=== PATIENT | male | born 1950 | race African-American/Black ===

== ENCOUNTER 2020-10-21 14:11 | Emergency (ER) | payer MEDICARE, MEDICAID ==
[2020-10-21] MEDS ORDERED: Thiamine HCl 200 MG/2 ML VIAL ONE (15:07)
[2020-10-21 15:18] LABS: Acetaminophen Less than 6.0 mcg/mL (10.0-30.0); Alcohol Less than 10 mg/dL (Less than 10); Salicylate Less than 8.0 mg/dL (15.0-30.0)
[2020-10-21 15:19] LABS: #Eosinphils 0.1 10x3/uL (0.0-0.5); #Monocytes 1.1 10x3/uL (0.0-1.1); #Neutrophils 10.6 10x3/uL (1.5-8.4); %Basophils 0.3 % (0.0-2.0); %Eosinophils 0.6 % (0.0-6.0); %Lymphocytes 11.5 % (18.0-47.0); %Monocytes 8.4 % (0.0-10.0); %Neutrophils 78.7 % (40.0-75.0); ALT (SGPT) 12 U/L (8-55); AST (SGOT) 13 U/L (5-34); Alkaline Phosphatase 116 U/L (40-110); BUN (Urea Nitrogen) 103 mg/dL (8.4-25.7); Bilirubin, Total 0.4 mg/dL (0.2-1.2); Calc. Creatinine Clearance 0 mL/min (70-130); Calcium 9.1 mg/dL (7.8-10.44); Chloride 115 mmol/L (98-107); Globulin 3.6 g/dL (2.4-3.5); Glucose 102 mg/dL (83-110); Hemoglobin 12.4 g/dL (13.5-17.5); Lipase 110 U/L (8-78); Mean Corpuscular HGB CONC 30.5 g/dL (32.0-36.0); Mean Corpuscular Hemoglobin 28.4 pg (27.0-33.0); Mean Corpuscular Volume 93.1 fl (81.2-95.1); Mean Platelet Volume 9.5 fl (7.4-10.4); Platelet Count 392 10x3/uL (150-450); Protein, Total 7.6 g/dL (5.8-8.1); RBC Distribution Width 17.3 % (11.5-14.5); Red Blood Cell (RBC) Count 4.36 10x6/uL (4.32-5.72); Sodium 136 mmol/L (136-145); White Blood Cell (WBC) Count 13.5 10x3/uL (3.5-10.5)
[2020-10-21] MEDS ORDERED: Cefepime 2 GM VIAL ONE (15:52)
[2020-10-21 17:11] LABS: Potassium 7.9 mmol/L (3.5-5.1)
[2020-10-21 17:12] LABS: Carbon Dioxide Less than 8 mmol/L (23-31)
[2020-10-21] MEDS ORDERED: Albuterol Sulfate 2.5 mg/3 ml Neb ONE (17:28)
[2020-10-21] MEDS ORDERED: Sodium Bicarb 50 MEQ/50 ML Abboject 8.4% SYRINGE ONE (17:29)
[2020-10-21] MEDS ORDERED: Calcium Chloride 1 GM/10 ML Abboject SYRINGE ONE (17:29)
[2020-10-21] MEDS ORDERED: Dextrose 50% Abboject 50 ML SYRINGE ONE (17:30)
[2020-10-21] MEDS ORDERED: Calcium Gluc 4.6 MEQ/10 ML (100 MG/ML) IV SCH (17:45)
[2020-10-21] MEDS ORDERED: Insulin Regular 300 UNITS/3 ML VIAL ONE (17:58)
[2020-10-21 18:12] LABS: PTT 23.9 sec (22.0-33.0); Prothrombin Time 10.9 sec (9.5-12.1)
[2020-10-21] MEDS ORDERED: Bisacodyl 5 MG TAB PO PRN (18:19)
[2020-10-21] MEDS ORDERED: Acetaminophen 325 MG TAB PO PRN (18:19)
[2020-10-21] MEDS ORDERED: Guaifenesin DM 100-10/5 ML UDCUP PO PRN (18:19)
[2020-10-21 18:59] LABS: Bilirubin Neg (Negative); Blood, Urine 25 (Negative); Clarity Clear (Clear); Glucose, Urine (Dipstick) Normal (Negative); Ketone, Urine Negative (Negative); Leukocyte 500 (Negative); Nitrite Negative (Negative); Protein, Urine (Dipstick) 100 mg/dl (Neg-Trace); Specific Gravity, Urine 1.025 (1.002-1.036); Urobilinogen Normal mg/dL (Less than 2)
[2020-10-21] MEDS ORDERED: Sodium Bicarb 50 MEQ/50 ML Abboject 8.4% SYRINGE IVP SCH (19:00)
[2020-10-21] MEDS ORDERED: Dextrose 5% in Water 1,000 ML IV SCH (19:00)
[2020-10-21 19:11] LABS: Bacteria/HPF 4+ HPF (None Seen); Mucous/LPF 2+ LPF (<2+); RBC/HPF 0-3 HPF (0-3); WBC/HPF 21-50 HPF (0-3)
[2020-10-21] MEDS ORDERED: Sodium Bicarb 50 MEQ/50 ML VIAL ONE (19:27)
[2020-10-21] MEDS ORDERED: Famotidine/PF 20 mg/2ml Vial SLOW IVP SCH (21:00)
[2020-10-21] MEDS ORDERED: Metoprolol Tartrate 50 MG TAB PO SCH (21:00)
[2020-10-21] MEDS ORDERED: Atorvastatin Calcium 40 MG TAB PO SCH (21:00)
[2020-10-21 22:35] LABS: SARS-CoV-2 NAA Rapid Test Not Detected (NotDetected)
[2020-10-22] MEDS ORDERED: Enoxaparin Sodium 30 MG/0.3 ML SYRINGE SC SCH (09:00)
[2020-10-22] MEDS ORDERED: Aspirin 81 mg Enteric Coated Tablet PO SCH (09:00)
== END 2020-10-21 21:55 | disposition short-term general hospital (02) ==
LOC: CSHERS 14:11
DX: N17.9 Acute kidney failure, unspecified (principal); K72.90 Hepatic failure, unspecified without coma; E87.5 Hyperkalemia; Z20.822 Contact with and (suspected) exposure to COVID-19; E78.5 Hyperlipidemia, unspecified; I10 Essential (primary) hypertension; F17.210 Nicotine dependence, cigarettes, uncomplicated; Z79.899 Other long term (current) drug therapy
CPT/HCPCS: 36415; 74176; 80053; 80307; 81003; 81015; 82140; 83605; 83690; 84484; 85025; 85610; 85730; 87040; 93005; J0692; J1815; J2001; J3411; J7611; U0002